=== PATIENT | male | born 1945 | race African-American/Black ===

== ENCOUNTER 2019-05-27 21:03 | Emergency (ER) | payer OTHER, MEDICARE ==
[~2019-05-27] VITALS: Ht 182.9 cm; Wt 84.0 kg
--- NOTE | 2019-05-27 21:39 | NUR ---
PT RESTING IN BED. NSR ON MONITOR 90S. NO NEEDS AT THIS TIME. NEUROS GROSSLY INTACT. LEONE. PIV BY EMS. DENIES CARDIAC HX/SYNC HX. AWAITING MD. CALL [facility] IN [facility]. STS HAD 3 BEERS TODAY.
--- NOTE | 2019-05-27 21:49 | NUR ---
WAS IN ROOM.
--- NOTE | 2019-05-27 22:05 | NUR ---
RESTING IN BED. PLAN LABS. VSS. CALL [facility] IN [place]. NAD.
--- NOTE | 2019-05-27 22:25 | NUR ---
FRIEND RAVINDER STILL: [phone].
--- NOTE | 2019-05-27 22:25 | NUR ---
REPORT TO LAVERNE GOTTLIEB.
[2019-05-27 22:43] LABS: BASOPHILS # (AUTO) 0.04 x10^3/uL (0-0.1); BASOPHILS % (AUTO) 0 % (0-1); EOSINOPHILS % (AUTO) 1 % (1-7); LYMPHOCYTES # (AUTO) 2.24 x10^3/uL (1-3.4); LYMPHOCYTES % (AUTO) 18 % (22-44); MD NO; MEAN CORPUSCULAR HEMOGLOBIN 33.1 pg (27.5-34.5); MEAN CORPUSCULAR HGB CONC 34.3 g/dL (33.2-36.2); MEAN CORPUSCULAR VOLUME 96.6 fL (81-97); MEAN PLATELET VOLUME 8.6 fL (7.4-10.4); MONOCYTES # (AUTO) 0.84 x10^3/uL (0.2-0.8); MONOCYTES % (AUTO) 7 % (2-9); NEUTROPHILS # (AUTO) 9.17 x10^3/uL (1.8-6.8); NEUTROPHILS % (AUTO) 74 % (42-75); PLATELET COUNT 248 x10^3/uL (130-400); RED BLOOD COUNT 4.77 x10^6/uL (4.38-5.82)
[2019-05-27 22:54] LABS: ALANINE AMINOTRANSFERASE 18 U/L (12-78); ALBUMIN 3.6 g/dL (3.4-5.0); ANION GAP 8 mmol/L (5-15); CALCIUM 8.8 mg/dL (8.5-10.1); CHLORIDE 100 mmol/L (98-107); CREATININE 1.01 mg/dL (0.7-1.3)
[2019-05-27 22:59] LABS: ALKALINE PHOSPHATASE 88 U/L (45-117); BILIRUBIN,TOTAL 0.9 mg/dL (0.2-1.0); TOTAL PROTEIN 7.2 g/dL (6.4-8.2); TROPONIN I < 0.015 ng/mL (0.000-0.045)
[2019-05-27 23:34] VITALS: BP 121/74
--- NOTE | 2019-05-27 23:37 | NUR ---
Pt ambulated to restroom, denies dizziness.
== END 2019-05-28 00:18 | disposition home or self-care (01) ==
LOC: ED 23:45
DX: M17.0 Bilateral primary osteoarthritis of knee (principal); G89.29 Other chronic pain; I10 Essential (primary) hypertension; F17.200 Nicotine dependence, unspecified, uncomplicated; R00.0 Tachycardia, unspecified; W01.0XXA Fall on same level from slipping, tripping and stumbling without subsequent striking against object, initial encounter; Y93.89 Activity, other specified; Y92.89 Other specified places as the place of occurrence of the external cause; Y99.8 Other external cause status
CPT/HCPCS: 36415; 80053; 80307; 84484; 85025; 93005; 99284